=== PATIENT | male | born 1990 | race Caucasian/White ===

== ENCOUNTER 2017-06-16 13:30 | Emergency (ER) | payer MEDICAID ==
[~2017-06-16] VITALS: Ht 175.3 cm; Wt 68.0 kg
[2017-06-16 13:32] VITALS: BP 128/91
[2017-06-16 14:24] LABS: BASOPHILS # (AUTO) 0.04 x10^3/uL (0-0.1); BASOPHILS % (AUTO) 0 % (0-1); EOSINOPHILS # (AUTO) 0.35 x10^3/uL (0-0.4); EOSINOPHILS % (AUTO) 4 % (1-7); LYMPHOCYTES # (AUTO) 2.17 x10^3/uL (1-3.4); LYMPHOCYTES % (AUTO) 23 % (22-44); MD NO; MEAN CORPUSCULAR HEMOGLOBIN 31.3 pg (27.5-34.5); MEAN CORPUSCULAR HGB CONC 34.2 g/dL (33.2-36.2); MEAN CORPUSCULAR VOLUME 91.6 fL (81-97); MEAN PLATELET VOLUME 9.3 fL (7.4-10.4); MONOCYTES # (AUTO) 0.81 x10^3/uL (0.2-0.8); MONOCYTES % (AUTO) 9 % (2-9); NEUTROPHILS # (AUTO) 6.15 x10^3/uL (1.8-6.8); NEUTROPHILS % (AUTO) 65 % (42-75); PLATELET COUNT 202 x10^3/uL (130-400); RED BLOOD COUNT 5.77 x10^6/uL (4.38-5.82); RED CELL DISTRIBUTION WIDTH 13.2 % (9.4-14.8)
[2017-06-16] MEDS ORDERED: SODIUM CHLORIDE 0.9% 1,000ML IVBOLUS ONE (14:30)
[2017-06-16] MEDS ORDERED: SODIUM CHLORIDE FLUSH 10ML SYR IVF ONE (14:30)
[2017-06-16 14:52] LABS: ALBUMIN 4.6 g/dL (3.4-5.0); ANION GAP 7 mmol/L (5-15); CALCIUM 8.9 mg/dL (8.5-10.1); CHLORIDE 106 mmol/L (98-107)
[2017-06-16 14:56] LABS: ALANINE AMINOTRANSFERASE 50 U/L (12-78); ALKALINE PHOSPHATASE 77 U/L (45-117); BILIRUBIN,TOTAL 1.1 mg/dL (0.2-1.0); CREATININE 1.01 mg/dL (0.7-1.3); TOTAL PROTEIN 7.5 g/dL (6.4-8.2)
[2017-06-16 16:09] LABS: MICROSCOPIC INDICATED
[2017-06-16 16:11] LABS: CULTURE INDICATED? YES
== END 2017-06-16 16:27 | disposition home or self-care (01) ==
LOC: ED 16:00
DX: K62.5 Hemorrhage of anus and rectum (principal); K64.4 Residual hemorrhoidal skin tags; R82.99 Other abnormal findings in urine
CPT/HCPCS: 36415; 74021; 80053; 81001; 85025; 87086; 96360; 99285; J7030

== ENCOUNTER 2020-12-17 21:34 | Emergency (ER) | payer MEDICAID ==
[~2020-12-17] VITALS: Ht 175.3 cm; Wt 84.7 kg
--- NOTE | 2020-12-17 22:35 | NUR ---
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
[2020-12-17 22:51] LABS: BASOPHILS % (AUTO) 1 % (0-1); EOSINOPHILS % (AUTO) 4 % (1-7); LYMPHOCYTES % (AUTO) 24 % (22-44); MEAN CORPUSCULAR HEMOGLOBIN 31.7 pg (27.5-34.5); MEAN CORPUSCULAR HGB CONC 35.1 g/dL (33.2-36.2); MONOCYTES % (AUTO) 9 % (2-9); NEUTROPHILS % (AUTO) 62 % (42-75); PLATELET COUNT 223 x10^3/uL (130-400); RED BLOOD COUNT 5.75 x10^6/uL (4.38-5.82); RED CELL DISTRIBUTION WIDTH 13.6 % (9.4-14.8)
[2020-12-17 23:04] LABS: ALBUMIN 4.5 g/dL (3.4-5.0); ANION GAP 6 mmol/L (5-15); CALCIUM 9.3 mg/dL (8.5-10.1); CHLORIDE 110 mmol/L (98-107); CREATININE 1.38 mg/dL (0.7-1.3)
[2020-12-17 23:08] LABS: TROPONIN I < 0.015 ng/mL (0.000-0.045)
--- NOTE | 2020-12-17 23:38 | NUR ---
CC OF CHEST PAIN IN STERNUM WITH RADIATING TO THE RIGHT THAT STARTED AND J&J COVID VACCINE BUT ONLY WHILE LAYING FLAT. PT STATES WHEN HE FIRST GOT VACCINE HE ALSO HAD FEET SWELLING AND SOB BUT THE SWELLING HAS RESOLVED. HE STATES THE CHEST PAIN IS "A LITTLE BIT BETTER BUT STILL THERE SO I WANTED TO GET IT CHECKED OUT". MOTHER AT BEDSIDE.
[2020-12-18 00:15] VITALS: BP 130/79
== END 2020-12-18 00:16 | disposition home or self-care (01) ==
LOC: ED 22:00
DX: R07.2 Precordial pain (principal); R00.0 Tachycardia, unspecified; R06.02 Shortness of breath; R50.9 Fever, unspecified; F17.210 Nicotine dependence, cigarettes, uncomplicated; I10 Essential (primary) hypertension; Z90.89 Acquired absence of other organs
CPT/HCPCS: 36415; 71045; 80048; 82040; 84484; 85025; 85379; 93005; 99285; 99406

== ENCOUNTER 2021-01-17 12:39 | Emergency (ER) | payer MEDICAID ==
[~2021-01-17] VITALS: Ht 175.3 cm; Wt 84.3 kg
[2021-01-17 13:14] VITALS: BP 137/77
--- NOTE | 2021-01-17 15:46 | NUR ---
TRIAGE TECH: NIL FOR SECOND SET OF VITALS
--- NOTE | 2021-01-17 16:57 | NUR ---
TRIAGE TECH: NIL X 3
== END 2021-01-17 17:18 | disposition left against medical advice (07) ==
LOC: ED 13:09
DX: K04.7 Periapical abscess without sinus (principal); K02.9 Dental caries, unspecified
CPT/HCPCS: 99281